=== PATIENT | male | born 1965 | race Caucasian/White ===

== ENCOUNTER 2019-09-17 14:16 | Emergency (ER) | payer OTHER ==
[~2019-09-17] VITALS: Ht 188 cm; Wt 89.8 kg
[~2019-09-17 14:16] MED LIST: AERONEB GO NEB1 EACH INH; ALBUTEROL2.5 MG/3 M IH; CARISOPRODOL 3350 MG PO; IBUPROFEN 800800 M1 PO; NOHOMEMEDICATIONS; PREDNISONE 20 M20 M1 PO; ULTRAM 50MG TAB50 MG PO; VENTOLIN HFA 1818 GM INH; ZPAK PO
[2019-09-17 15:03] LABS: HEMOGLOBIN 14.7 gm/dL (14.0-18.0); MPV 7.9 fl. (7.2-11.1); NUCLEATED RBCS 0 /100WBC
[2019-09-17 15:05] LABS: ABSOLUTE BASOPHILS 0.1 thou/uL (0.0-0.2); ABSOLUTE EOSINOPHILS 0.3 thou/uL (0.0-0.7); ABSOLUTE LYMPHOCYTES 1.6 thou/uL (0.8-5.3); ABSOLUTE MONOCYTES 0.5 thou/uL (0.0-1.2); ABSOLUTE NEUTROPHILS 4.4 thou/uL (1.6-8.1); BASOPHILS 1.2 %; EOSINOPHILS 4.2 %; HEMATOCRIT 42.6 % (42.0-52.0); LYMPHOCYTES 22.8 %; MCH 32.7 pg (26.0-34.0); MCHC 34.6 g/dL (28.0-37.0); MCV 94.4 fL (80.0-100.0); MONOCYTES 7.4 %; PLATELET COUNT* 220 thou/uL (150-400); POLYS 64.4 %; RBC 4.51 mil/uL (4.50-6.00); RDW-CV 13.2 % (10.5-14.5); WBC 6.8 thou/uL (4.0-11.0)
[2019-09-17 15:12] LABS: CALCIUM 8.8 mg/dL (8.5-10.1); CREATININE 0.9 mg/dL (0.6-1.3); POTASSIUM 3.9 mmol/L (3.5-5.1)
[2019-09-17 15:22] LABS: TOTAL PROTEIN 7.6 g/dL (6.4-8.2)
[2019-09-17 15:30] LABS: INFLUENZA A ANTIGEN Negative (Negative); INFLUENZA B ANTIGEN Negative (Negative)
[2019-09-17] MEDS ORDERED: PROAIR HFA8.5 GM INH (16:51)
[2019-09-17] MEDS ORDERED: ADVAIR 250-501 EACH INH (16:51)
[2019-09-17] MEDS ORDERED: ALBUTEROL2.5 MG/31 INH (16:51)
[2019-09-17] MEDS ORDERED: PREDNISONE 10 M10 MG PO (16:52)
[2019-09-17 17:12] VITALS: BP 109/76
--- NOTE | 2019-09-18 12:32 | EKG ---
[place] [address] ELECTROCARDIOGRAM REPORT Name: JEN MONTIEL Room: [facility]#: [id number] Admission: 09/17/19 Attend Phys: Discharge: 09/17/19 Date of : 69 Report #: [id number] THIS REPORT FOR: //name// [facility] ED Test Date: 2019-09-17 Test Time: 15:07:56 Pat Name: JEN HEDRICK Department: Room: Gender: M Cellar Pumper: GREEN : 1965 Requested By: Je Pete Order Number: [id number] MD: Deshawn Coates Measurements Intervals [place] Rate: 86 P: 41 TX: 146 QRS: -27 QRSD: 90 T: 2 QT: 359 QTc: 430 Interpretive Statements Sinus rhythm Borderline left axis deviation Baseline wander in lead(s) V2 No previous ECG available for comparison Electronically Signed On 09-18-2019 12:32:11 SPARMAKER by Deshawn Coates [email or web address] <ELECTRONICALLY SIGNED> By: Deshawn Coates MD, [facility] 09/18/19 1232 150 Deshawn Coates MD, FACC /EPI
== END 2019-09-17 17:15 | disposition home or self-care (01) ==
LOC: M.ERS 14:16
PROVIDERS: Physician Assistant
DX: J45.901 Unspecified asthma with (acute) exacerbation (principal); Z88.6 Allergy status to analgesic agent

== ENCOUNTER 2019-12-19 07:14 | Emergency (ER) | payer OTHER ==
[~2019-12-19] VITALS: Ht 174 cm; Wt 88.5 kg
[~2019-12-19 07:14] MED LIST changes: +ADVAIR 250-501 EACH INH; +ALBUTEROL2.5 MG/31 INH; +HYDROCODON-ACE1 EAC8 PO; +KEFLEX500 M1 PO; +PREDNISONE 10 M10 MG PO; +PROAIR HFA8.5 GM INH
[2019-12-19] MEDS ORDERED: ADVAIR 100-501 EACH INH (07:21)
[2019-12-19] MEDS ORDERED: PREDNISONE 20 M20 M1 PO (07:37)
[2019-12-19] MEDS ORDERED: ADVAIR 250-501 EACH INH (07:37)
[2019-12-19] MEDS ORDERED: VENTOLIN HFA 1818 GM INH (07:37)
[2019-12-19] MEDS ORDERED: ALBUTEROL2.5 MG/3 M IH (07:37)
[2019-12-19 07:47] VITALS: BP 91/66
== END 2019-12-19 07:45 | disposition home or self-care (01) ==
LOC: M.ERS 07:14
DX: J45.901 Unspecified asthma with (acute) exacerbation (principal); Z88.6 Allergy status to analgesic agent